=== PATIENT | male | born 1995 | race American Indian/Alaskan Native ===

== ENCOUNTER 2018-12-26 15:39 | Emergency (ER) | payer SELFPAY ==
--- NOTE | 2018-12-26 16:19 | Event Note ---
ED Screening Note Date of service: 12/26/18 Time: 16:18 ED Screening Note: 23 y o male presents with swelling and mass, drainage from right armpit This initial assessment/diagnostic orders/clinical plan/treatment(s) is/are subject to change based on patients health status, clinical progression and re- assessment by fellow clinical providers in the ED. Further treatment and workup at subsequent clinical providers discretion. Patient/guardian urged not to elope from the ED as their condition may be serious if not clinically assessed and managed. Initial orders include:
--- NOTE | 2018-12-26 17:28 | Emergency Department Report ---
Abscess Boil HPI - HPI Chief Complaint: Skin/Abscess/Foreign Body Stated Complaint: BUMP UNDER (R) ARMPIT/PAIN Time Seen by Provider: 12/26/18 16:18 Duration: 3 Days Location: Upper Extremity Severity: Mild History: Yes Pain, Yes Purulent Drainage, No Fever, No Foreign Body, No Previous History HPI: R axillary abscess x 3 days. now draining this aftn. no other c/o Home Medications: Previous Rx's Medication Instructions Recorded Last Taken Type Sulfamethoxazole/Trimethoprim 1 each PO BID #20 tablet 12/26/18 Unknown Rx [Bactrim DS TAB] Allergies/Adverse Reactions: Allergies Allergy/AdvReac Type Severity Reaction Status Date / Time No Known Allergies Allergy Unverified 12/26/18 15:52 ED Review of Systems ROS: Stated complaint: BUMP UNDER (R) ARMPIT/PAIN Other details as noted in HPI Comment: All other systems reviewed and negative ED Past Medical Hx - Past Medical History Previous Medical History?: No - Surgical History Past Surgical History?: No - Social History Smoking Status: Former Smoker Substance Use Type: None - Medications Home Medications: Home Medications Medication Instructions Recorded Confirmed Last Taken Type Sulfamethoxazole/Trimethoprim 1 each PO BID #20 tablet 12/26/18 Unknown Rx [Bactrim DS TAB] ED Abscess Boil Physical Exam - Exam General: Vital signs noted. No distress. Alert and acting appropriately. Size: 2 cm (R axillary abscess, drainage noted) Exam: Yes Tenderness, Yes Fluctuance, Yes Normal Neurologic Exam, Yes Normal Circulation, No Surrounding Cellulites/Erythema, No Lymphangitis Exam: A&O x 3. NCAT. skin warm, dry, intact. normal mood, affect ED Course Vital Signs 12/26/18 16:15 Temperature 98.7 F Pulse Rate 89 Respiratory 18 Rate Blood Pressure 115/76 O2 Sat by Pulse 99 Oximetry Critical care attestation.: If time is entered above; I have spent that time in minutes in the direct care of this critically ill patient, excluding procedure time. ED Medical Decision Making - Medical Decision Making abscess already draining continue compresses, add abx fu pcp - Differential Diagnosis abscess, cellulitis ED Disposition Clinical Impression: Abscess, axilla Disposition: DC-01 TO HOME OR SELFCARE Is pt being admited?: No Condition: Good Instructions: Abscess (ED) Prescriptions: Sulfamethoxazole/Trimethoprim [Bactrim DS TAB] 1 each PO BID #20 tablet Referrals: SOLEDAD FERREIRA MD [Staff Physician] - 3-5 Days Time of Disposition: 17:27
[2018-12-26 19:00] VITALS: BP 148/73
== END 2018-12-26 18:59 | disposition home or self-care (01) ==
LOC: ED 15:39
DX: L02.411 Cutaneous abscess of right axilla (principal); Z87.891 Personal history of nicotine dependence
CPT/HCPCS: 99282